=== PATIENT | female | born 1955 | race Caucasian/White ===

== ENCOUNTER → 2016-09-17 | Outpatient (CLI) | payer OTHER | LOC: FIMAGING 10:55 | DX: Z12.39 Encounter for other screening for malignant neoplasm of breast (principal); R92.8 Other abnormal and inconclusive findings on diagnostic imaging of breast ==

== ENCOUNTER → 2016-11-18 | Outpatient (CLI) | payer OTHER | LOC: FIMAGING 15:53 | DX: N92.6 Irregular menstruation, unspecified (principal) ==

== ENCOUNTER 2016-12-21 14:38 | Emergency (ER) | payer OTHER ==
[2016-12-21 14:51] VITALS: PULSE 81
--- NOTE | 2016-12-21 15:56 | EDPHY ---
H & P Stated Complaint: cramping from uterine biopsy on fri Time Seen by Provider: 12/21/16 15:56 - Personal History Current Tetanus/Diphtheria Vaccine: Yes Current Tetanus Diphtheria and Acellular Pertussis (TDAP): Yes - Medical/Surgical History Hx Asthma: No Hx Chronic Respiratory Disease: No Hx Diabetes: No Hx Cardiac Disease: No Hx Renal Disease: No Hx Cirrhosis: No Hx Alcoholism: No Hx HIV/AIDS: No Hx Splenectomy or Spleen Trauma: No Other PMH: herpes, insomnia HRT - Social History Smoking Status: Never smoked Constitutional: Initial Vital Signs Temperature (C) 37 C 12/21/16 14:49 Heart Rate 81 12/21/16 14:49 Respiratory Rate 16 12/21/16 14:49 Blood Pressure 102/70 12/21/16 14:49 O2 Sat (%) 96 12/21/16 14:49 O2 Delivery Mode Room Air Allergies/Adverse Reactions: No Known Allergies Allergy (Verified 07/13/13 11:24) Home Medications: Medication Instructions Recorded HYDROcodone/APAP 10/325 [Jay 1 - 2 each PO Q4-6PRN PRN #20 tab 12/21/16 10/325] Hyoscyamine Sulfate [Levbid] 0.75 mg PO Q12 #20 tab.sr.12h 12/21/16 Medical Decision Making - Diagnostics Imaging: Discussed imaging studies w/ bilingual call center representative Radiologist ED Course/Re-evaluation: CHIEF COMPLAINT: Uterine cramping HISTORY OF PRESENT ILLNESS: The patient is a 61 y/o female who presents with lower abdominal pain and cramping since Friday, three days ago. On Friday she had a uterine biopsy, following the procedure she has had severe uterine spasms. For the past two days she has had abnormal vaginal cramping and has felt lethargic. Denies fever, chills, or any other systemic illness. REVIEW OF SYSTEMS: A 10 point review of systems was performed and is negative with the exception of the elements mentioned in the history of present illness. PHYSICAL EXAM: HR, BP, O2 Sat, RR. Temp noted General Appearance: Alert, well hydrated, appropriate, and non-toxic appearing. Head: Atraumatic without scalp tenderness or obvious injury Eyes: Pupils equal, round, reactive to light and accommodation, EOMI, no trauma , no injection. Ears: Clear bilaterally, no perforation, normal landmarks Nose: Atraumatic, no rhinorrhea, clear. Throat: Mucus membranes moist. Neck: Supple, nontender, no lymphadenopathy. Respiratory: No retractions, no distress, no wheezes, and no accessory muscle use. Lungs are clear to auscultation bilaterally. Cardiovascular: Regular rate and rhythm, no murmurs, rubs, or gallops. Good capillary refill all extremities. Gastrointestinal: Lower abdominal tenderness, soft, non-distended, no masses, no rebound, no guarding, no peritoneal signs. Musculoskeletal: Normal active ROM of all extremities, atraumatic. Neurological: Alert, appropriate, and interactive. Non-focal neuro. Skin: No rashes, good turgor, no nodules on palpation. Past medical history: Herpes, insomnia Past surgical history: Uterine biopsy Family history: Noncontributory Social history: , lives in [place], non-smoker DIAGNOSTICS/PROCEDURES/CRITICAL CARE TIME: Abdominal Ultrasound: Negative DIFFERENTIAL DIAGNOSIS: The differential diagnosis for the patient's abdominal pain included but was not limited to uterine spasms and cramping, ovarian cyst, pelvic inflammatory disease, ovarian torsion, urinary tract infection, cholecystitis, and appendicitis. MEDICAL DECISION MAKING: The patient is a 61 y/o female who presents with abdominal pain and cramping secondary to a dysfunctional uterine biopsy on Friday, three days ago. On exam she has moderate lower abdominal tenderness. Plan on abdominal ultrasound and labs. Patient denies pain medication at this time. 1717: Reassessed patient and discussed imaging and laboratory findings. Dr. Fraire, radiologist, read the abdominal ultrasound, with negative results. The labs are also negative. If she had had a uterine perforation, I would have suspected lab and ultrasound abnormality. I also suspect she would have looked ill. I had a long discussion with the patient about doing a CT. She believes that the radiation from the CT is not worth the benefits of the possible imaging findings. She states she is feeling better and would like to go home. Plan on Levbid and Vicodin prescriptions for symptoms. Return precautions given ; patient is comfortable with this plan. - Data Points Laboratory Results: Laboratory Results 12/21/16 16:18 12/21/16 16:18 12/21/16 12/21/16 16:18 16:18 WBC 6.86 10^3/uL 10^3/uL (3.80-9.50) RBC 5.13 10^6/uL 10^6/uL (4.18-5.33) Hgb 15.5 g/dL g/dL (12.6-16.3) Hct 46.7 % % (38.0-47.0) MCV 91.0 fL fL (81.5-99.8) MCH 30.2 pg pg (27.9-34.1) MCHC 33.2 g/dL g/dL (32.4-36.7) RDW 11.9 % % (11.5-15.2) Plt Count 177 10^3/uL 10^3/uL (150-400) MPV 9.7 fL fL (8.7-11.7) Neut % (Auto) 54.2 % % (39.3-74.2) Lymph % (Auto) 34.0 % % (15.0-45.0) [place] % (Auto) 6.1 % % (4.5-13.0) Eos % (Auto) 4.7 % % (0.6-7.6) Baso % (Auto) 0.9 % % (0.3-1.7) Nucleat RBC Rel Count 0.0 % % (0.0-0.2) Absolute Neuts (auto) 3.72 10^3/uL 10^3/uL (1.70-6.50) Absolute Lymphs (auto) 2.33 10^3/uL 10^3/uL (1.00-3.00) Absolute Monos (auto) 0.42 10^3/uL 10^3/uL (0.30-0.80) Absolute Eos (auto) 0.32 10^3/uL 10^3/uL (0.03-0.40) Absolute Basos (auto) 0.06 10^3/uL 10^3/uL (0.02-0.10) Absolute Nucleated RBC 0.00 10^3/uL 10^3/uL (0-0.01) Immature Gran % 0.1 % % (0.0-1.1) Immature Gran # 0.01 10^3/uL 10^3/uL (0.00-0.10) Sodium 136 mEq/L mEq/L (134-144) Potassium 4.3 mEq/L mEq/L (3.5-5.2) Chloride 100 mEq/L mEq/L (97-110) Carbon Dioxide 24 mEq/l mEq/l (22-31) Anion Gap 12 mEq/L mEq/L (8-16) BUN 14 mg/dL mg/dL (7-23) Creatinine 0.8 mg/dL mg/dL (0.6-1.0) Estimated GFR > 60 Glucose 88 mg/dL mg/dL (70-100) Calcium 9.9 mg/dL mg/dL (8.5-10.4) Departure - Departure Disposition: Home, Routine, Self-Care Clinical Impression: Pelvic pain in female, Uterine cramping Condition: Good Instructions: Pelvic Pain in Women (ED) Additional Instructions: 1. Take 600mg of ibuprofen every 6-8 hours as needed for pain. 2. Take Vicodin as prescribed for severe pain. 3. Take Levbid as prescribed. 4. Follow up with your primary care physician in the next 3-5 days for unimproved symptoms. 5. Return to the ED for severe bleeding, abdominal pain, fever, or other worsening of your condition. Referrals: MALFESE,DOCTOR [Other] - As per Instructions Prescriptions: HYDROcodone/APAP 10/325 [Jay 10/325] 1 - 2 each PO Q4-6PRN PRN #20 tab PRN Reason: Pain, Moderate Hyoscyamine Sulfate [Levbid] 0.75 mg PO Q12 #20 tab.sr.12h Report Scribed for: Roberto Moya Report Scribed by: Rhoda Milian Date of Report: 12/21/16 Time of Report: 17:32
[2016-12-21 16:27] LABS: % IMMATURE GRANULYOCYTES 0.1 % (0.0-1.1); ABSOLUTE IMMATURE GRANULOCYTES 0.01 10^3/uL (0.00-0.10); ADD DIFF? NO; ADD MORPH? NO; ADD SCAN? NO; ATYPICAL LYMPHOCYTE FLAG 0 (0-99); FRAGMENT RBC FLAG 0 (0-99); HEMATOCRIT 46.7 % (38.0-47.0); HEMOGLOBIN 15.5 g/dL (12.6-16.3); LEFT SHIFT FLG 0 (0-99); LIPEMIA HEMOLYSIS FLAG 80 (0-99); MEAN CELL HEMOGLOBIN 30.2 pg (27.9-34.1); MEAN CELL HEMOGLOBIN CONCENTR. 33.2 g/dL (32.4-36.7); MEAN PLATELET VOLUME 9.7 fL (8.7-11.7); PLATELET CLUMPS FLAG 10 (0-99); PLATELET COUNT 177 10^3/uL (150-400); RED BLOOD CELL COUNT 5.13 10^6/uL (4.18-5.33); RED CELL DISTRIBUTION WIDTH 11.9 % (11.5-15.2)
[2016-12-21 16:43] LABS: ANION GAP 12 mEq/L (8-16); CALCIUM 9.9 mg/dL (8.5-10.4); CARBON DIOXIDE 24 mEq/l (22-31); CHLORIDE 100 mEq/L (97-110); CREATININE 0.8 mg/dL (0.6-1.0); GLOMERULAR FILTRATION RATE > 60; GLUCOSE 88 mg/dL (70-100); POTASSIUM 4.3 mEq/L (3.5-5.2); SODIUM 136 mEq/L (134-144)
[2016-12-21 17:41] VITALS: BP 110/67; RESP 18; TEMP 98.4; O2SAT 95
== END 2016-12-21 17:41 | disposition home or self-care (01) ==
DX: R10.2 Pelvic and perineal pain (principal)

== ENCOUNTER → 2017-02-19 | Outpatient (CLI) | payer OTHER | LOC: FIMAGING 14:17 | DX: N92.6 Irregular menstruation, unspecified (principal); I86.2 Pelvic varices; R93.8 Abnormal findings on diagnostic imaging of other specified body structures ==

== ENCOUNTER → 2017-03-31 | Outpatient (CLI) | payer OTHER | LOC: FIMAGING 09:22 | PROVIDERS: ATTEND Obstetrics & Gynecology | DX: Z12.31 Encounter for screening mammogram for malignant neoplasm of breast (principal) | CPT/HCPCS: G0202 ==

== ENCOUNTER → 2017-04-02 | Outpatient (CLI) | payer OTHER | LOC: FIMAGING 09:25 | PROVIDERS: ATTEND Obstetrics & Gynecology | DX: Z13.820 Encounter for screening for osteoporosis (principal); M85.89 Other specified disorders of bone density and structure, multiple sites ==

== ENCOUNTER → 2018-04-07 | Outpatient (CLI) | payer OTHER | LOC: FIMAGING 09:18 | PROVIDERS: ATTEND Obstetrics & Gynecology | DX: Z12.31 Encounter for screening mammogram for malignant neoplasm of breast (principal); R92.2 Inconclusive mammogram ==

== ENCOUNTER → 2018-04-10 | Outpatient (CLI) | payer OTHER | LOC: FIMAGING 10:53 | PROVIDERS: ATTEND Midwife | DX: N63.20 Unspecified lump in the left breast, unspecified quadrant (principal) ==